=== PATIENT | female | born 1995 | race Caucasian/White ===

== ENCOUNTER 2017-01-15 22:45 | Emergency (ER) | payer OTHER ==
[~2017-01-15 22:45] MED LIST: ALAVERT10 MG PO; ALBUTEROL17 G1 INH; ALLERGY10 M2 PO; ANIMAL SHAPES1 EAC2 PO; BACTRIM DS TABL1 TA2 PO; BUSPAR15 M1 PO; CLEOCIN150 MG DOB; HYDROCODON-ACE1 EAC7 PO; ILOTYCIN1 GM OD; IMODIUM A-D2 M1 PO; MEDROL4 MG/DOSE- PO; MELATONIN 5 MG1 EACH PO; MONTELUKAST SOD10 MG PO; NILSTAT PO; NO MEDICATIONS; PREDNISONE PO; PREDNISONE50 MG PO; PRENATAL VITAM1 EAC1; ROBITUSSIN A-C S5 ML PO; SUDAFED PO; TYLENOL #3 PO; VIBRAMYCIN100 M1 PO; WELLBUTRIN XL150 M1 PO; ZITHROMAX PO; ZITHROMAX1 G/PKT PO; ZOFRANODT PO; [UNRECOGNIZED DRUG - OTHER] MT
== END 2017-01-15 23:19 | disposition home or self-care (01) ==
LOC: SED 22:45
DX: N76.4 Abscess of vulva (principal); I10 Essential (primary) hypertension; F17.210 Nicotine dependence, cigarettes, uncomplicated
CPT/HCPCS: 99283